=== PATIENT | male | born 1955 | race African-American/Black ===

== ENCOUNTER 2017-11-17 07:58 | Emergency (ER) | payer OTHER ==
[2017-11-17 08:19] VITALS: BP 123/85
--- NOTE | 2017-11-17 08:49 | UC ---
Abdominal Pain Male HPI - HPI Summary HPI Summary: 62 year old male with abdominal concerns. pt c/o midline abd pain that radiates to the L. Pain intensified with BM yesterday, BM today with no pain. Denies blood in stool and stool is formed. Pt states he cannot wear his normal attire R /T pain and pressure. Cannot lye on L side. Pt has a hx of diverticulitis (2003 ) No fever. Feels the same it was last time he had diverticulitis and having no chest pain no cardiac concern. - History of Current Complaint Chief Complaint: UCGI Stated Complaint: LOWER ABD PAIN Time Seen by Provider: 11/17/17 08:15 Hx Obtained From: Patient Onset/Duration: Gradual Onset Timing: Constant Severity Initially: Mild Severity Currently: Moderate Pain Intensity: 6 Location: Discrete At: LLQ Radiates to: LLQ Character: Sharp Aggravating Factor(s): Movement Alleviating Factor(s): Rest Associated Signs And Symptoms: Positive: Negative, Nausea - Allergies/Home Medications Allergies/Adverse Reactions: Allergies Allergy/AdvReac Type Severity Reaction Status Date / Time No Known Allergies Allergy Verified 11/17/17 08:20 Home Medications: Home Medications Aspirin [Aspirin Childrens 81 MG] 81 mg PO DAILY 11/17/17 [History Confirmed ] Atorvastatin* [Lipitor*] 20 mg PO BEDTIME 11/17/17 [History Confirmed 11/17/17] Carvedilol TAB* [Coreg TAB*] 25 mg PO BID 11/17/17 [History Confirmed 11/17/17] Clopidogrel TAB* [Plavix TAB*] 75 mg PO DAILY 11/17/17 [History Confirmed ] Lisinopril 20 mg PO DAILY 11/17/17 [History Confirmed 11/17/17] Montelukast Sodium TAB* [Singulair TAB*] 10 mg PO DAILY 11/17/17 [History Confirmed 11/17/17] Spironolactone TAB* [Aldactone TAB*] 25 mg PO DAILY 11/17/17 [History Confirmed 11/17/17] PMH/Surg Hx/FS Hx/Imm Hx Previously Healthy: Yes Endocrine History: Dyslipidemia Cardiovascular History: Hypertension, Myocardial Infarction GI/ History: Diverticulitis - Surgical History Surgical History: Yes Surgery Procedure, Year, and Place: Cardiac stent - Family History Known Family History: Positive: Cardiac Disease - Social History Occupation: Employed Full-time - [employer] Alcohol Use: Weekly Substance Use Type: None Smoking Status (MU): Never Smoked Tobacco Review of Systems Gastrointestinal: Abdominal Pain, Nausea Is Patient Immunocompromised?: No All Other Systems Reviewed And Are Negative: Yes Physical Exam Triage Information Reviewed: Yes Appearance: Well-Appearing, Pain Distress - mild Vital Signs: Initial Vital Signs Temp 98.2 F 11/17/17 08:12 Pulse 75 11/17/17 08:12 Resp 18 11/17/17 08:12 BP 123/85 11/17/17 08:12 Pulse Ox 100 11/17/17 08:12 Vital Signs Reviewed: Yes Eye Exam: Normal ENT Exam: Normal Neck: Positive: 1 Respiratory Exam: Normal Cardiovascular Exam: Normal Abdomen Description: Positive: Soft, Guarding - LLQ. Negative: Nontender, No Organomegaly, CVA Tenderness (R), CVA Tenderness (L), Distended, Hernia @, Pulsatile Mass - LLQ tenderness . RLQ < LLQ., Splenomegaly Bowel Sounds: Positive: Present Musculoskeletal Exam: Normal Neurological Exam: Normal Psychological Exam: Normal Skin Exam: Normal Abd Pain Male Course/Dx - Course Course Of Treatment: Discussed CT scan today abdomen due to sx but pt states this presents the same as previous diverticulitis and desires to treat clinically. if Sx worsen he will return here or go to ED for labs and CT scan. he is aware of risks of not scanning -- concern for potential appendicitis / perforation / mass / abscess === he still desires to treat at this time and if Sx persist or worsen today he will go to ED>. treat at this time and f/u PCP in 1 day - Differential Dx/Clinical Impression Differential Diagnosis/HQI/PQRI: Appendicitis, Diverticulitis, Ureteral Stone Provider Diagnoses: diverticulitis Discharge - Sign-Out/Discharge Documenting (check all that apply): Discharge/Admit/Transfer - Discharge Plan Condition: Good Disposition: HOME Prescriptions: Ciprofloxacin TAB* [Cipro 500 MG TAB*] 500 mg PO BID #20 tab metroNIDAZOLE [Metronidazole] 500 mg PO TID #30 tablet Patient Education Materials: Diverticulitis (ED) Referrals: Non Staff,Doctor [Primary Care Provider] - 1 Day Additional Instructions: As we discussed since CT scan was declined we are treating your symptoms clinically but if there is any worsening of your symptoms please go directly to receive medical care . - Billing Disposition and Condition Condition: GOOD Disposition: Home
== END 2017-11-17 09:10 | disposition home or self-care (01) ==
LOC: UCCORT 07:58
DX: K57.92 Diverticulitis of intestine, part unspecified, without perforation or abscess without bleeding (principal); Z87.19 Personal history of other diseases of the digestive system; Z79.01 Long term (current) use of anticoagulants; Z79.82 Long term (current) use of aspirin; Z79.899 Other long term (current) drug therapy; E78.5 Hyperlipidemia, unspecified; I10 Essential (primary) hypertension; I25.2 Old myocardial infarction; Z95.5 Presence of coronary angioplasty implant and graft
CPT/HCPCS: 99202; G0463